=== PATIENT | female | born 1980 | race Asian ===

== ENCOUNTER 2018-06-18 20:50 | Emergency (ER) | payer SELFPAY ==
[~2018-06-18] VITALS: Ht 165.1 cm; Wt 54.4 kg
[2018-06-18 21:00] VITALS: BP 122/74
[2018-06-18] MEDS ORDERED: Norco 5mg/325mg tab ORAL ONE (21:00)
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
[2018-06-18] MEDS ORDERED: IBUPROFEN600 MG ORAL (22:52)
[2018-06-18] MEDS ORDERED: HYDROCODON-ACE1 EA15 ORAL (22:52)
[2018-06-18 23:30] VITALS: BP 117/69
[2018-06-18] MEDS ORDERED: Morphine Sulfate 4mg/ml Inj (IV USE ONLY) IVP ONE (23:30)
[2018-06-19 00:01] LABS: BILIRUBIN, URINE NEGATIVE (NEGATIVE); COLOR,URINE PALE YELLOW; GLUCOSE, URINE (UA) NEGATIVE (NEGATIVE); KETONES,URINE NEGATIVE (NEGATIVE); LEUKOCYTE ESTERASE ,URINE 1+ (NEGATIVE); NITRITE,URINE NEGATIVE (NEGATIVE); PH,URINE 5 (4.5-8.0); PROTEIN,URINE NEGATIVE (NEGATIVE); UROBILINOGEN,URINE NORMAL MG/DL (0.0-1.0)
[2018-06-19 00:03] LABS: APPEARANCE,URINE CLEAR
[2018-06-19 00:23] LABS: HEMATOCRIT 36.6 % (37.0-47.0); MEAN CORPUSCULAR VOLUME 86 FL (80-99); PLATELET COUNT 206 K/UL (150-450); RED BLOOD COUNT 4.26 M/UL (4.20-5.40); RED CELL DISTRIBUTION WIDTH 12.6 % (11.6-14.8); WHITE BLOOD COUNT 12.8 K/UL (4.8-10.8)
[2018-06-19 00:38] LABS: ANION GAP 8 mmol/L (5-15); BLOOD UREA NITROGEN 9 mg/dL (7-18); CALCIUM 8.9 MG/DL (8.5-10.1); CARBON DIOXIDE 26 MMOL/L (21-32); CHLORIDE 106 MMOL/L (98-107); CREATININE 0.7 MG/DL (0.55-1.30); POTASSIUM 3.8 MMOL/L (3.5-5.1); SODIUM 140 MMOL/L (136-145)
[2018-06-19 00:39] LABS: INR 1.1 (0.9-1.1)
[2018-06-19 01:30] VITALS: BP 100/71
[2018-06-19 02:15] VITALS: BP 100/71
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
== END 2018-06-19 02:15 | disposition short-term general hospital (02) ==
LOC: EDBD 20:50 → EMR 22:28
DX: S22.089A Unspecified fracture of T11-T12 vertebra, initial encounter for closed fracture (principal); T14.8XXA Other injury of unspecified body region, initial encounter; V43.52XA Car driver injured in collision with other type car in traffic accident, initial encounter; Y92.410 Unspecified street and highway as the place of occurrence of the external cause
CPT/HCPCS: 36415; 72131; 80048; 81001; 81025; 85025; 85610; 85730; 87086; 96374; 99285; J2270